=== PATIENT | female | born 1955 | race Caucasian/White ===

== ENCOUNTER 2017-11-18 10:38 | Outpatient (CLI) | payer OTHER ==
[2017-11-18 18:21] LABS: BASOPHILS % (AUTO) 0.6 %; EOSINOPHILS # (AUTO) 0.1 10^3/uL (0.0-0.7); EOSINOPHILS % (AUTO) 2.6 %; HGB - HEMOGLOBIN 13.3 g/dL (12.0-16.0); LYMPHOCYTES # (AUTO) 2.3 10^3/uL (1.5-3.5); LYMPHOCYTES % (AUTO) 43.6 %; MEAN CORPUSCULAR HEMOGLOBIN 28.9 pg (27.0-31.0); MEAN CORPUSCULAR HGB CONC 33.1 g/dL (32.0-36.0); MEAN CORPUSCULAR VOLUME 87.2 fL (81.0-99.0); MEAN PLATELET VOLUME 8.5 fL (7.9-10.8); MONOCYTES # (AUTO) 0.4 10^3/uL (0.0-1.0); MONOCYTES % (AUTO) 6.8 %; NEUTROPHILS # (AUTO) 2.5 10^3/uL (1.5-6.6); NEUTROPHILS % (AUTO) 46.4 %; PLT - PLATELET COUNT 242 10^3/uL (130-450); RED CELL DISTRIBUTION WIDTH 12.9 % (12.0-15.0); WHITE BLOOD COUNT 5.4 x10^3/uL (4.8-10.8)
[2017-11-18 18:51] LABS: ALBUMIN 3.8 g/dL (3.2-5.5); ALBUMIN/GLOBULIN RATIO 1.2 (1.0-2.2); ALKALINE PHOSPHATASE 53 IU/L (42-121); ALT ALANINE AMINOTRANSFERASE 19 IU/L (10-60); AST ASPARTATE AMINOTRANSFERASE 24 IU/L (10-42); BILIRUBIN,TOTAL 0.6 mg/dL (0.2-1.0); BUN - BLOOD UREA NITROGEN 14 mg/dL (6-20); CALCIUM 9.2 mg/dL (8.5-10.3); CARBON DIOXIDE - CO2 29 mmol/L (21-32); CHLORIDE 104 mmol/L (101-111); CREATININE 0.7 mg/dL (0.4-1.0); GFR - MDRD 85 (>89); GLUCOSE 88 mg/dL (70-100); SODIUM 137 mmol/L (135-145); TOTAL PROTEIN 6.9 g/dL (6.7-8.2)
[2017-11-18 18:54] LABS: CRP - C-REACTIVE PROTEIN < 1.0 mg/dL (0-1.0)
== END 2017-11-18 10:39 | disposition home or self-care (01) ==
LOC: LAB.F 10:38
PROVIDERS: ATTEND Internal Medicine
DX: R52 Pain, unspecified (principal); R63.4 Abnormal weight loss
CPT/HCPCS: 80053; 85025; 85651; 86140

== ENCOUNTER → 2020-07-18 | Outpatient (CLI) | payer OTHER ==
--- NOTE | 2020-07-18 16:50 | XRAY Report ---
PROCEDURE: Foot 3 View LT INDICATIONS: TOE PAIN, LEFT TECHNIQUE: 3 views of the foot were acquired. COMPARISON: None FINDINGS: Bones: Nondisplaced fracture of the fifth proximal phalange. No suspicious bony lesions. Soft tissues: No tibiotalar joint effusion. Achilles tendon appears normal. IMPRESSION: Fifth proximal phalangeal fracture. Reviewed by: Grace Mendoza MD, PhD on 07/18/2020 4:49 PM PDT Approved by: Grace Mendoza MD, PhD on 07/18/2020 4:49 PM PDT Station ID: [id number]
== END ==
LOC: DI.S 08:00
PROVIDERS: ATTEND Physician Assistant Medical
DX: S92.515A Nondisplaced fracture of proximal phalanx of left lesser toe(s), initial encounter for closed fracture (principal)

== ENCOUNTER 2022-09-22 09:39 | Day surgery (SDC) | payer MEDICARE, OTHER ==
[2022-09-22] MEDS ORDERED: LACTATED RINGERS 1,000 ML IV ONE (10:08)
--- NOTE | 2022-09-22 12:14 | ANESTHESIA ---
Pre-Anesthesia VS, & Labs - Diagnosis screening exam - Procedure colonoscopy Vital Signs: Temp Pulse Resp BP Pulse Ox O2 Flow Rate 36.4 C L 67 11 L 122/69 99 0 09/22/22 10:09 09/22/22 10:09 09/22/22 10:09 09/22/22 10:09 09/22/22 10:09 09/22/22 10:09 Height: 5 ft 2 in Weight (kg): 70.4 kg Body Mass Index: 28.3 BMI Classification: Overweight - NPO >8 hours - Is Patient ?: No Home Medications and Allergies Home Medications: Ambulatory Orders Levothyroxine Sodium [Levoxyl] 1 tab PO DAILY 09/21/22 Liothyronine [Cytomel] 1 tab PO DAILY 09/21/22 Levothyroxine Sodium [Levoxyl] 1 tab PO DAILY 09/21/22 Liothyronine [Cytomel] 1 tab PO DAILY 09/21/22 Allergies/Adverse Reactions: Allergies Allergy/AdvReac Type Severity Reaction Status Date / Time latex Allergy Rash Verified 09/21/22 13:10 Sulfa (Sulfonamide Allergy Hives Verified 09/21/22 12:59 Antibiotics) amoxicillin AdvReac Unknown Verified 09/21/22 13:10 cephalexin AdvReac Unknown Verified 09/21/22 13:10 Cephalosporins AdvReac Unknown Verified 09/21/22 13:10 midazolam [From Versed] AdvReac Unknown Verified 09/22/22 10:15 peanut AdvReac Unknown Verified 09/21/22 13:10 Quinazolinones AdvReac Unknown Verified 09/21/22 12:59 shellfish derived AdvReac Unknown Verified 09/21/22 13:10 fluoroquinolone AdvReac Unknown Uncoded 09/22/22 10:15 Anes History & Medical History - Anesthetic History Anesthesia Complications: reports: Post-Operative Nausea/Vomiting - Medical History Cardiovascular: reports: None Pulmonary: reports: Sleep apnea, CPAP use Gastrointestinal: reports: Colon polyps Urinary: reports: Incontinence Neuro: reports: None Musculoskeletal: reports: None Endocrine/Autoimmune: reports: HyPOthyroidism Blood Disorders: reports: None Smoking Status: Never smoker Psychosocial: reports: No issues indicated History of Cancer?: No - Surgical History General: reports: Colonoscopy Eyes Ears Nose Throat (EENT): reports: Other (thyroidectomy and sinus surgery) Gynecologic: reports: Hysterectomy Exam General: Alert, Oriented x3, Cooperative, No acute distress Dental: WNL Mouth Openin Fingerbreadth Neck Mobility: Normal Mallampati classification: II Thyromental Distance: 4-6 cm Mental/Cognitive Status: Alert/Oriented X3, Normal for patient Plan Anesthesia Type: General, Total IV Consent for Procedure(s) Verified and Reviewed: Yes Code Status: Attempt Resuscitation ASA classification: 2-Mild systemic disease Is this case an emergency?: No
[2022-09-22] MEDS ORDERED: PROPOFOL 500 MG/50 ML 500 MG/50 ML VIAL ONE (12:16)
[2022-09-22] MEDS ORDERED: GLYCOPYRROLATE 1 MG/5 ML VIAL ONE (12:33)
[2022-09-22] MEDS ORDERED: LACTATED RINGERS 300 ML IV ONE (14:40)
[2022-09-22 15:06] VITALS: BP 121/79
--- NOTE | 2022-09-22 16:15 | ANESTHESIA POST OP EVALUATION ---
Anesthesia Post Eval - Post Anesthesia Eval Vitals: Last Vital Signs Temp 36.3 C L 09/22/22 14:50 Pulse 81 09/22/22 14:56 Resp 16 09/22/22 15:05 BP 121/79 09/22/22 15:05 Pulse Ox 97 09/22/22 14:56 O2 Flow Rate 0 09/22/22 10:09 CV Function Including HR & BP: Stable Pain Control: Satisfactory Nausea & Vomiting: Negative Mental Status: Baseline Respiratory Status: Airway Patent Hydration Status: Satisfactory Anesthesia Complications: None
== END 2022-09-22 09:40 | disposition home or self-care (01) ==
LOC: SDS 09:39
PROVIDERS: ATTEND Surgery
DX: Z12.11 Encounter for screening for malignant neoplasm of colon (principal); Z86.010 Personal history of colon polyps; K64.4 Residual hemorrhoidal skin tags; K64.8 Other hemorrhoids; G47.30 Sleep apnea, unspecified
CPT/HCPCS: G0105; J7120

== ENCOUNTER 2022-12-24 17:42 | Outpatient (CLI) | payer MEDICARE, OTHER ==
--- NOTE | 2022-12-24 18:42 | Ultrasound Report ---
PROCEDURE: Duplex Ext Veins Right INDICATIONS: RLE CALF PAIN TECHNIQUE: Real-time imaging, as well as color and pulse Doppler interrogation, were performed of the lower extr emity deep veins from the inguinal ligament to the popliteal fossa. COMPARISON: None. FINDINGS: The deep veins are normally compressible, and free of intraluminal thrombus. Color and pu lse Doppler demonstrate normal phasic intraluminal flow. There is normal augmentation response to di stal compression maneuver. IMPRESSION: Negative study for DVT. Reviewed by: Satish Hines MD on 12/24/2022 6:41 PM PST Approved by: Satish Hines MD on 12/24/2022 6:41 PM PST Station ID: [id number]
== END 2022-12-24 17:43 | disposition home or self-care (01) ==
LOC: DI 17:42
PROVIDERS: ATTEND Family Medicine
DX: M79.661 Pain in right lower leg (principal)

== ENCOUNTER 2023-03-03 19:10 | Outpatient (CLI) | payer MEDICARE, OTHER ==
--- NOTE | 2023-03-04 09:14 | Ultrasound Report ---
PROCEDURE: Pelvic w/Transvaginal INDICATIONS: PELVIC PAIN TECHNIQUE: Real-time scanning was performed of the pelvic organs, with image documentation. Additional endovagi nal scanning was necessary due to incomplete visualization of the adnexal and endometrial structures by transabdominal scanning. COMPARISON: None. FINDINGS: Uterus: Absent. Suspected remaining cervix/prominent vaginal cuff, possibly with nabothian cysts. Thickness is about 1.4 cm. Ovaries: Ovaries are atrophic, with color and spectral flows documented. Color and spectral Doppler: flows are documented Other: No pathologic free fluid. IMPRESSION: Hysterectomy. Suspected remaining cervix versus prominent vaginal cuff measuring up to 1.4 cm. Possib le nabothian cysts. Correlate with surgical history and consider follow-up if this is discordant. No acute adnexal abnormality. Reviewed by: Satish Hines MD on 03/04/2023 9:13 AM PDT Approved by: Satish Hines MD on 03/04/2023 9:13 AM PDT Station ID: [id number]
== END 2023-03-03 19:11 | disposition home or self-care (01) ==
LOC: DI 19:10
PROVIDERS: ATTEND Family Medicine
DX: R10.2 Pelvic and perineal pain (principal); Z90.710 Acquired absence of both cervix and uterus

== ENCOUNTER 2023-03-23 15:34 | Outpatient (CLI) | payer OTHER | END 2023-03-23 23:59 | disposition left against medical advice (07) | LOC: EMS 15:34 | DX: R07.89 Other chest pain (principal); V49.40XA Driver injured in collision with unspecified motor vehicles in traffic accident, initial encounter; Y92.414 Local residential or business street as the place of occurrence of the external cause ==

== ENCOUNTER 2023-03-24 16:01 | Outpatient (CLI) | payer OTHER ==
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
== END 2023-03-24 16:02 | disposition home or self-care (01) ==
LOC: DI.S 16:01
PROVIDERS: ATTEND Family Medicine
DX: R07.81 Pleurodynia (principal); M54.2 Cervicalgia; M25.512 Pain in left shoulder; R07.1 Chest pain on breathing